=== PATIENT | female | born 1975 | race African-American/Black ===

== ENCOUNTER → 2025-06-18 | Day surgery (SDC) | payer BC ==
[~2025-06-18] MED LIST: BIRTH CONTROL PO; LACTATED RINGER'S 1,000 ML ONE; LIDOCAINE HCL 2% LOCAL INJ 5 ML SDV VIAL INJ ONE; MIDAZOLAM HCL 2 MG/2 ML VIAL ONE; MOUNJARO5 MG/0.5 M SQ; PROPOFOL IV EMULSION 10 MG/ML 20 ML VIAL ONE
[2025-06-18 14:25] VITALS: BP 113/78; PULSE 83; RESP 16; O2SAT 98
== END | disposition home or self-care (01) ==
LOC: OR 11:30
PROVIDERS: ATTEND Internal Medicine Gastroenterology
DX: Z12.11 Encounter for screening for malignant neoplasm of colon (principal); K64.8 Other hemorrhoids; Z79.85 Long-term (current) use of injectable non-insulin antidiabetic drugs; Z79.3 Long term (current) use of hormonal contraceptives; Z68.37 Body mass index [BMI] 37.0-37.9, adult; Z01.810 Encounter for preprocedural cardiovascular examination; Z01.818 Encounter for other preprocedural examination
CPT/HCPCS: 36415; 45378; 84702; 93005; J2003; J2250; J2704; J7121